=== PATIENT | female | born 1990 | race Caucasian/White ===

== ENCOUNTER → 2020-04-22 | Outpatient (CLI) | payer OTHER ==
--- NOTE | 2020-04-22 18:26 | REP ---
INDICATION: N63.0 LYDIA BREAST PAIN,MULTIPE BOB MASSES BOTH BREASTS; N63.0 LYDIA BREAST PAIN,MULTIPLE BOB MASSES BOTH BREASTS. The patient reports a palpable lump in each breast, left larger than right. COMPARISON: no comparison breast imaging. TECHNIQUE: Bilateral CC and MLO) view(s) were taken. A skin marker is affixed to the skin by the patient at the site of each palpable lump, 1 on each side. FINDINGS: Extremely dense fibroglandular elements are seen bilaterally. This may inhibit the sensitivity of mammography. No suspicious or dominant density is seen. No microcalcification or architectural distortion is seen. No worrisome skin change is appreciated. 3-D tomosynthesis shows no additional finding. No mass or spiculation is seen at the site of either palpable lump. These project inferiorly and medially on each side. The Volpara volumetric breast density pattern is D. Sonography: Targeted sonography is performed through the inferior medial quadrant of each breast in the and in the area of the palpable lumps. Heterogeneous fibroglandular background echotexture is seen. No cyst or mass is seen by sonography. No acoustic shadowing is observed. IMPRESSION: BIRADS/ACR category 1 negative mammography and targeted sonography findings bilaterally.. This patient's Tyrer-Cuzick lifetime breast cancer risk assessment score is 21.3%. Annual screening breast MRI scanning can be considered for patients whose lifetime risk assessment is over 20%. This mammogram was interpreted with the aid of an FDA-approved computer-aided detection system. The patient states she had a clinical breast exam in April of 2020.. The patient letter being requested is M2. RECOMMENDATION: Repeat screening mammography recommended 1 year (for women over 40). <Electronically signed by Cruz Farrell > 04/22/20 1752
== END ==
LOC: M WHC 14:57
PROVIDERS: ATTEND Obstetrics & Gynecology
DX: N63.0 Unspecified lump in unspecified breast (principal)
CPT/HCPCS: 76642; 77066; G0279